=== PATIENT | male | born 1980 | race Caucasian/White ===

== ENCOUNTER 2016-05-22 15:09 | Emergency (ER) | payer SELFPAY ==
--- NOTE | 2016-05-27 09:52 | ER ---
ADMIT: 05/22/2016 RM/LOC: ER [facility] MR#: [id number] [address] [facility] [address] [place], [place] [address] GURDEEP ZAMARRIPA [address] [place] [id number] Emergency Room Report SEX: M AGE: 35 : 1980 DATE: 05/22/2016 ADDENDUM: CHIEF COMPLAINT: Withdrawing from oxycodone. HISTORY OF PRESENT ILLNESS: This is a 35-year-old, who has been on oxycodone 10 mg every 4 hours as needed for his back pain. Also just started on Xanax about 13 days ago at [facility] for anxiety. There were some trust issues with the clinic, so they called him and discharged him as a patient from the clinic. Now it has been about 24 hours since his last oxycodone, it has been about 3 hours since his last Xanax. is with him in the room, he is completely out of his oxycodone but he does have enough Xanax to titrate off it. I gave him instructions how to titrate off the Xanax. I told him at this time just to cold turkey the opiates. He actually wants to quit the opiates, he does not want to take them. I told him he is not going to feel very good, but Xanax should help him titrate off it. CLINICAL IMPRESSION: Opiate and benzo abuse. OMAIRA Olsen / Gurdeep Henry MD / modl JOB #: [id number] CC: Gurdeep Henry MD, Attending Physician
== END 2016-05-22 16:00 | disposition home or self-care (01) ==
LOC: ER 15:09
DX: F11.20 Opioid dependence, uncomplicated (principal); F15.20 Other stimulant dependence, uncomplicated; I10 Essential (primary) hypertension; Z88.1 Allergy status to other antibiotic agents; Z88.6 Allergy status to analgesic agent; Z79.899 Other long term (current) drug therapy

== ENCOUNTER 2016-06-13 08:18 | Emergency (ER) | payer SELFPAY ==
--- NOTE | 2016-06-21 15:17 | ER ---
ADMIT: 06/13/2016 RM/LOC: [facility] MR#: [id number] [id number] [place], [place] [address] MARILOU LARISA B [address] [place] [address] Emergency Room Report SEX: M AGE: 35 : 1980 DATE: 06/13/2016 CHIEF COMPLAINT: Syncopal episode and high blood pressure. HISTORY OF PRESENT ILLNESS: The patient is a 35-year-old male, who has quite poor dentition who was at a free dental clinic, tooth extraction today, when he had 8 teeth pulled. At two different times during the extraction, he passed out. When they were able to get his blood pressure after he had came back around, his blood pressure was actually high. He states in general he feels terrible and has some burning, which sounds like his GERD symptoms in his chest. He did get nitroglycerin en route by EMS but not for chest pain, they gave him because his blood pressure was 240 systolic. He states he has some nausea now. REVIEW OF SYSTEMS: Denies any fevers or chills. No change in bowel or bladder function. PAST MEDICAL HISTORY: Significant for hypertension, which has been fairly poorly controlled and a history of narcotic pain medication abuse. MEDICATIONS: 1. Valium. 2. Hydrochlorothiazide. 3. Losartan. Started the hydrochlorothiazide and losartan in the past couple of days from [address] [place] [address]. ALLERGIES: MOTRIN. SOCIAL HISTORY: Denies smoking, drug, or alcohol use. PHYSICAL EXAMINATION: See T-sheet for complete exam. Focused exam shows that the patient is not in distress. He does have blood in his mouth which has minimal oozing and has stitches in his gums from his recent tooth extractions this morning. EKG showed sinus tachycardia, otherwise negative. Chest x-ray was unremarkable. ADMIT: 06/13/2016 RM/LOC: ER [facility] MR#: [id number] [address] [address] LARISA ZAMARRIPA [address] [place] [id number] Emergency Room Report SEX: M AGE: 35 : 1980 EMERGENCY DEPARTMENT COURSE: The patient did receive Toradol for pain and Zofran in the Emergency Department. He also received a GI cocktail, which improved his burning sensation in his chest. The patient did appear somewhat anxious in Emergency Department, he has a history of anxiety. At this point, I believe he is stable to be discharged home. I will give him a prescription for 3 Valium to use over the next day if needed for anxiety and he is given a prescription for Phenergan. As he has had a problem in the past with narcotic pain abuse, I am not sending home with any narcotics. DIAGNOSES: 1. Vasovagal syncopal episode. 2. Anxiety. Reymundo Briseno MD/ leander JOB #: [id number] CC: Reymundo Briseno MD, Attending Physician UNKNOWN, Family Physician
== END 2016-06-13 10:38 | disposition home or self-care (01) ==
LOC: ER 08:18
DX: R55 Syncope and collapse (principal); R11.2 Nausea with vomiting, unspecified; F41.9 Anxiety disorder, unspecified; I10 Essential (primary) hypertension; Z79.899 Other long term (current) drug therapy

== ENCOUNTER → 2016-06-30 | Outpatient (CLI) | payer OTHER | END | disposition home or self-care (01) | LOC: PTH.S 06-28 08:00 | DX: I10 Essential (primary) hypertension (principal) ==